=== PATIENT | female | born 1970 | race Two or more races ===

== ENCOUNTER 2024-11-10 23:34 | Emergency (ER) | payer OTHER ==
[~2024-11-10] VITALS: Ht 170.2 cm; Wt 81.6 kg
[2024-11-11] MEDS ORDERED: BISOPROLOL-HCT1 EAC1 PO (00:11)
[2024-11-11] MEDS ORDERED: KETOROLAC TROMETHAMINE 60 MG VIAL IM STA (00:59)
[2024-11-11] MEDS ORDERED: DEXAMETHASONE 4 MG TABLET PO STA (01:00)
[2024-11-11] MEDS ORDERED: TRAMADOL HCL 50 MG TABLET PO STA (01:01)
[2024-11-11] MEDS ORDERED: FAMOtidine 10 MG/ML (4ML VIAL) IV PUSH STA (01:02)
[2024-11-11] MEDS ORDERED: ONDANSETRON HCL 2 MG/ML VIAL IV STA (01:02)
== END 2024-11-11 07:05 | disposition home or self-care (01) ==
LOC: ER 23:34
DX: S30.0XXA Contusion of lower back and pelvis, initial encounter (principal); W18.39XA Other fall on same level, initial encounter; Y93.89 Activity, other specified; Y92.22 Religious institution as the place of occurrence of the external cause; M62.830 Muscle spasm of back